=== PATIENT | male | born 1995 | race Caucasian/White ===

== ENCOUNTER 2020-06-23 01:03 | Emergency (ER) | payer OTHER ==
[2020-06-23] MEDS ORDERED: AMOXICILLIN500 MG PO (01:31)
== END 2020-06-23 01:41 | disposition home or self-care (01) ==
LOC: FER 01:03
DX: J02.9 Acute pharyngitis, unspecified (principal); F17.210 Nicotine dependence, cigarettes, uncomplicated; Z98.890 Other specified postprocedural states; Z88.0 Allergy status to penicillin
CPT/HCPCS: 87880; 99282

== ENCOUNTER 2021-02-03 19:07 | Emergency (ER) | payer OTHER ==
[~2021-02-03 19:07] MED LIST: AMOXICILLIN500 MG PO
[2021-02-03] MEDS ORDERED: CLEOCIN300 MG PO (19:39)
== END 2021-02-03 19:55 | disposition home or self-care (01) ==
LOC: FER 19:07
DX: K08.89 Other specified disorders of teeth and supporting structures (principal); F17.200 Nicotine dependence, unspecified, uncomplicated; Z88.1 Allergy status to other antibiotic agents
CPT/HCPCS: 99282; Q0163

== ENCOUNTER 2021-05-04 15:17 | Emergency (ER) | payer OTHER ==
[~2021-05-04 15:17] MED LIST changes: +CLEOCIN300 MG PO
[2021-05-04] MEDS ORDERED: MEDROL 4MG DOSEP4 MG PO (16:46)
[2021-05-04] MEDS ORDERED: CYCLOBENZAPRINE10 MG PO (16:46)
== END 2021-05-04 16:56 | disposition home or self-care (01) ==
LOC: FER 15:17
DX: M54.32 Sciatica, left side (principal); Z88.1 Allergy status to other antibiotic agents
CPT/HCPCS: 72100

== ENCOUNTER 2021-07-12 14:47 | Emergency (ER) | payer OTHER ==
[~2021-07-12 14:47] MED LIST changes: +CYCLOBENZAPRINE10 MG PO; +MEDROL 4MG DOSEP4 MG PO
[2021-07-12] MEDS ORDERED: AMOXICILLIN875 MG PO (15:33)
== END 2021-07-12 15:42 | disposition home or self-care (01) ==
LOC: FER 14:47
DX: K04.7 Periapical abscess without sinus (principal); Z88.1 Allergy status to other antibiotic agents; Z28.310 Unvaccinated for COVID-19
CPT/HCPCS: 99282

== ENCOUNTER 2021-07-16 07:08 | Emergency (ER) | payer OTHER ==
[~2021-07-16] VITALS: Ht 177.8 cm; Wt 79.4 kg
[~2021-07-16 07:08] MED LIST changes: +AMOXICILLIN875 MG PO
[2021-07-16] MEDS ORDERED: AMOXICILLIN875 MG PO (08:00)
[2021-07-16] MEDS ORDERED: NORCO 5-325 TA1 EACH PO (08:58)
== END 2021-07-16 09:22 | disposition home or self-care (01) ==
LOC: FER 07:08
DX: K05.219 Aggressive periodontitis, localized, unspecified severity (principal); Z88.1 Allergy status to other antibiotic agents; Z91.040 Latex allergy status; Z28.310 Unvaccinated for COVID-19
CPT/HCPCS: 99282